=== PATIENT | female | born 1940 | race Hispanic/Latino ===

== ENCOUNTER 2017-07-01 14:59 | Outpatient (CLI) | payer MEDICARE, OTHER ==
--- NOTE | 2017-07-01 18:08 | RAD ---
RADIOGRAPH THORACIC SPINE 3 VIEWS: Date: 07/01/17 HISTORY: 77-year-old female with S22.008A. Other fracture of unspecified thoracic vertebra, initial encounter for closed fracture COMPARISON: No prior thoracic spine radiographic studies. FINDINGS: There is very exaggerated kyphosis of the thoracic spine. Diffuse, severe osteopenia. Anterior bridg ing osteophytes protruding into prevertebral space throughout the mid and lower thoracic spine, exte nding into the lumbar spine. Levoscoliosis of lumbar spine. Mild loss of height of one of the lower levels in the thoracic spine, of unknown age. There is approximately 20-35% loss of height there. Th e rest of the thoracic vertebral body heights are maintained. ACDF hardware is demonstrated in the l ower cervical spine. IMPRESSION: 1. Mild compression fracture deformity of one of the lower thoracic vertebral bodies, of indetermin ate age. 2. very exaggerated kyphosis of the thoracic spine 3. Diffuse idiopathic skeletal hyperostosis (DISH). 4. Diffuse osteopenia. 5. Lumbar levoscoliosis, incompletely imaged. 6. Status post anterior cervical diskectomy and fusion. POS: [facility]
--- NOTE | 2017-07-01 18:18 | RAD ---
LUMBAR SPINE: 07/01/17 Two views. HISTORY: Back pain. COMPARISON: 05/25/17 Postoperative changes with pedicle screws at L4, L5 and S1 levels with disc implants at these levels which appear stable. Hypertrophic changes are prominent in the lower thoracic and upper lumbar spin e. There is a scoliotic curvature. Bony fusion changes at L2-3. No acute compression. No interval ch capri from 05/25/17 identified. IMPRESSION: No significant interval change. POS: [facility]
== END 2017-07-01 15:00 | disposition home or self-care (01) ==
LOC: TBSIIMAG 14:59
PROVIDERS: ATTEND Neurological Surgery
DX: S22.008A Other fracture of unspecified thoracic vertebra, initial encounter for closed fracture (principal); M48.14 Ankylosing hyperostosis [Forestier], thoracic region; M85.88 Other specified disorders of bone density and structure, other site; M41.86 Other forms of scoliosis, lumbar region; Z98.1 Arthrodesis status
CPT/HCPCS: 72070; 72100

== ENCOUNTER 2017-08-12 12:46 | Outpatient (CLI) | payer MEDICARE, OTHER ==
--- NOTE | 2017-08-12 15:17 | RAD ---
LUMBAR SPINE TWO VIEWS: History: 77-year-old female with right leg weakness. History of back surgery. Comparison: 07-01-17 FINDINGS: There is levoscoliosis of the lumbar vertebral column. Pedicle screw placement and fusion changes are noted at L4, L5, and S1 with intradiscal prosthesis, stable from 07-01-17. Prominent anterior bony b ridging of the lower thoracic and lumbar spine from T12 to L3. No evidence for acute compression frac ture. Stable appearance from prior study. IMPRESSION: Stable post op pedicle screw and fusion changes at L4, L5 and S1 with levoscoliosis and severe disc o steophytosis with prominent anterior bony bridging of the lower thoracic upper mid lumbar spine. POS: [facility]
== END 2017-08-12 12:47 | disposition home or self-care (01) ==
LOC: TBSIIMAG 12:46
PROVIDERS: ATTEND Neurological Surgery
DX: S22.008A Other fracture of unspecified thoracic vertebra, initial encounter for closed fracture (principal); M41.86 Other forms of scoliosis, lumbar region; Z98.1 Arthrodesis status
CPT/HCPCS: 72100

== ENCOUNTER 2018-01-11 13:44 | Outpatient (CLI) | payer MEDICARE, OTHER ==
--- NOTE | 2018-01-19 13:53 | MMO ---
BILATERAL SCREENING MAMMOGRAM: INDICATION: Annual exam. COMPARISON: Prior exams dated 12/04/16 and 01/08/17. FINDINGS: There is focal asymmetry with stippled calcifications overlying the left axillary region on the MLO p rojection only may be artifactual in nature; however, axillary tail lesion with calcification cannot be excluded. Breast parenchyma demonstrates scattered fibroglandular elements with benign-appearing calcifications bilaterally. The interpretation of this exam was assisted with computer-aided detection. IMPRESSION: Asymmetric density with associated calcification involving the left axillary tail seen on MLO project ion only. Recommend exaggerated CCXL images of the left axillary tail region as well as spot magnifi cation compression views in the left MLO projection. The stippled densities may be related to some d eodorant artifact. Recommend appropriate cleansing of this area prior to the additional films. BIRADS 0: Incomplete: Need Additional Imaging Evaluation and/or Prior Mammograms for Comparison POS: [facility]
== END 2018-01-11 13:45 | disposition home or self-care (01) ==
LOC: SCSMAMMO 13:44
PROVIDERS: ATTEND Internal Medicine
DX: Z12.31 Encounter for screening mammogram for malignant neoplasm of breast (principal); R92.1 Mammographic calcification found on diagnostic imaging of breast; N64.89 Other specified disorders of breast
CPT/HCPCS: 77067

== ENCOUNTER 2018-10-17 10:08 | Outpatient (CLI) | payer MEDICARE, OTHER ==
--- NOTE | 2018-10-17 12:15 | ULT ---
RIGHT UPPER QUADRANT ULTRASOUND: History: Abdominal pain. Comparison: None. Technique: Utilizing a multihertz transducer, sonographic imaging of the right upper quadrant was per formed in the longitudinal and transverse plane. FINDINGS: The head of the pancreas has a normal echotexture. The remainder of the pancreas is obscured by bowel gas. Main portal vein is patent. Appropriate direction of flow. Increased echogenicity of liver may be due to hepatic steatosis or hepatocellular disease. Limited ev aluation for hepatic masses and intrahepatic biliary dilatation. Right hepatic lobe measures 14.9 cm. Right renal cortical thinning. No hydronephrosis. Right kidney measures 4.7 x 10.6 x 5.9 cm. No sonographic evidence of cholelithiasis, gallbladder wall thickening or pericholecystic fluid. Nega tive Beal's sign. Limited evaluation of the common bile duct. IMPRESSION: 1. Limited evaluation of the common bile duct. 2. No sonographic evidence of cholelithiasis or cholecystitis. POS: [facility]
== END 2018-10-17 10:09 | disposition home or self-care (01) ==
LOC: SCSULT 10:08
PROVIDERS: ATTEND Internal Medicine Gastroenterology
DX: R10.13 Epigastric pain (principal)
CPT/HCPCS: 76705

== ENCOUNTER 2019-02-03 13:28 | Outpatient (CLI) | payer MEDICARE, OTHER ==
--- NOTE | 2019-02-03 14:42 | MMO ---
Bilateral MAMMO Bilat Screen [facility]. CLINICAL HISTORY: Patient is 78 years old and is seen for screening. The patient has the following family history of breast cancer: maternal aunt and mother, at age 94. The patient has no personal history of cancer. VIEWS: The views performed were: bilateral craniocaudal with tomosynthesis and bilateral mediolateral oblique with tomosynthesis. FILMS COMPARED: The present examination has been compared to prior imaging studies performed at [facility] on 01/11/2018 and 01/25/2018, and at [facility] on 12/05/2015 and 01/08/2017. MAMMOGRAM FINDINGS: There are scattered fibroglandular densities. There are no suspicious masses, suspicious calcifications, or new areas of architectural distortion. IMPRESSION: THERE IS NO MAMMOGRAPHIC EVIDENCE OF MALIGNANCY. A ROUTINE FOLLOW-UP MAMMOGRAM IN 1 YEAR IS RECOMMENDED. THE RESULTS OF THIS EXAM WERE SENT TO THE PATIENT. ACR BI-RADS Category 1 - Negative MAMMOGRAPHY NOTE: 1. A negative mammogram report should not delay a biopsy if a dominant of clinically suspicious mass is present. 2. Approximately 10% to 15% of breast cancers are not detected by mammography. 3. Adenosis and dense breasts may obscure an underlying neoplasm.
--- NOTE | 2019-02-03 15:13 | BD ---
BONE DENSITOMETRY: 02/03/19 INDICATION: Postmenopausal osteoporosis screening. Both hips evaluated. BMD (g/cm2) T-SCORE Right femoral neck 0.753 -0.9 Total 0.838 -0.9 Left femoral neck 0.676 -1.6 Total 0.868 -0.6 Bone mineral density study from 03/23/06 revealed a left total femur density of 0.863. There has been minimal change since that exam. Impression: 1. Bone mineral density of the left femoral neck indicates osteopenia. Bone mineral density of the right femoral neck within normal range. POS: [facility]
== END 2019-02-03 13:29 | disposition home or self-care (01) ==
LOC: BICMAMMO 13:28
PROVIDERS: ATTEND Internal Medicine
DX: Z12.31 Encounter for screening mammogram for malignant neoplasm of breast (principal); M85.89 Other specified disorders of bone density and structure, multiple sites; Z80.3 Family history of malignant neoplasm of breast
CPT/HCPCS: 77063; 77067; 77080

== ENCOUNTER 2019-04-07 15:28 | Outpatient (CLI) | payer MEDICARE, OTHER ==
--- NOTE | 2019-04-07 17:50 | ULT ---
EXAM: Bilateral lower extremity venous ultrasound HISTORY: Chronic venous insufficiency with swelling. Right calf erythema. COMPARISON: None TECHNIQUE: Multiplanar grayscale and color Doppler images were obtained in a bilateral lower extremit y venous ultrasound. Spectral analysis of the Doppler waveforms were performed. FINDINGS: The bilateral common femoral vein, profunda femoral veins, superficial femoral veins, and p opliteal veins are normal in appearance without visible thrombus. These vessels demonstrate normal compression, flow, and augmentation. The bilateral posterior tibial veins, profunda femoral veins and greater saphenous veins are patent w ithout evidence of DVT. IMPRESSION: No evidence of DVT.
== END 2019-04-07 15:29 | disposition home or self-care (01) ==
LOC: SCSULT 15:28
PROVIDERS: ATTEND Internal Medicine
DX: M79.89 Other specified soft tissue disorders (principal)
CPT/HCPCS: 93970

== ENCOUNTER 2021-10-30 07:11 | Day surgery (SDC) | payer MEDICARE, OTHER ==
[2021-10-30 07:54] VITALS: BMI 27.4
[2021-10-30 09:36] VITALS: TEMP 97.3
[2021-10-30 10:03] VITALS: BP 131/58
== END 2021-10-30 10:00 | disposition home or self-care (01) ==
LOC: RAD 07:11
PROVIDERS: ATTEND Neurological Surgery
PROC: B01B1ZZ Fluoroscopy of Spinal Cord using Low Osmolar Contrast (ICD-10-PCS; principal; 2021-10-30)
DX: M47.12 Other spondylosis with myelopathy, cervical region (principal); M47.16 Other spondylosis with myelopathy, lumbar region; M47.22 Other spondylosis with radiculopathy, cervical region; M48.02 Spinal stenosis, cervical region; M48.03 Spinal stenosis, cervicothoracic region; M25.78 Osteophyte, vertebrae; M47.24 Other spondylosis with radiculopathy, thoracic region; M51.14 Intervertebral disc disorders with radiculopathy, thoracic region; M48.04 Spinal stenosis, thoracic region; M41.86 Other forms of scoliosis, lumbar region; M47.26 Other spondylosis with radiculopathy, lumbar region; M48.061 Spinal stenosis, lumbar region without neurogenic claudication; M47.817 Spondylosis without myelopathy or radiculopathy, lumbosacral region; M48.07 Spinal stenosis, lumbosacral region; I70.0 Atherosclerosis of aorta; K44.9 Diaphragmatic hernia without obstruction or gangrene; R91.8 Other nonspecific abnormal finding of lung field; G25.81 Restless legs syndrome; Z79.84 Long term (current) use of oral hypoglycemic drugs; Z79.899 Other long term (current) drug therapy; Z88.5 Allergy status to narcotic agent; Z98.1 Arthrodesis status
CPT/HCPCS: 62305; 72126; 72129; 72132

== ENCOUNTER 2023-01-19 14:22 | Outpatient (CLI) | payer MEDICARE, OTHER | END 2023-01-19 14:23 | disposition home or self-care (01) | LOC: NM 14:22 | PROVIDERS: ATTEND Surgery | DX: K82.8 Other specified diseases of gallbladder (principal) | CPT/HCPCS: 78227; A9537 ==